=== PATIENT | male | born 1950 | race Hispanic/Latino ===

== ENCOUNTER 2020-01-12 21:10 | Observation (INO) | payer MEDICARE, OTHER ==
[~2020-01-12] VITALS: Ht 177.8 cm; Wt 94.4 kg
[2020-01-12 21:14] VITALS: BP 139/106
--- NOTE | 2020-01-12 21:14 | NUR ---
Arrival Patient arrived to ED room 2 via wheelchair with complaints of pressure to left side of chest and difficulty breathing. Patient denies heart problems or history. RT at bedside for EKG. Per son, roberto carlosight patient was hypertensive having difficulty with memory and c/o chest pain. Dr Aden notified of patient arrival. Patient placed on cardiac and bedside monitor.
--- NOTE | 2020-01-12 21:28 | PCM.EKG ---
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
[2020-01-12] MEDS ORDERED: ASPIRIN PO PRN (21:30)
[2020-01-12] MEDS ORDERED: DUO 0.5-3(2.5) MG/3 ML IH STA (21:30)
[2020-01-12] MEDS ORDERED: DECADRON IH STA (21:30)
[2020-01-12] MEDS ORDERED: DUO 0.5-3(2.5) MG/3 ML IH ONE (21:34)
[2020-01-12] MEDS ORDERED: DECADRON ONE (21:34)
[2020-01-12 21:38] LABS: BASOPHIL # 0.1 10^3/uL (0.0-0.1); EOSINOPHIL # 0.4 10^3/uL (0.0-0.2); EOSINOPHIL % 5.3 % (0.0-5.0); LYMPHOCYTES # 2.49 10^3/uL1 (1.0-4.8); LYMPHOCYTES % 31.3 % (24.0-44.0); MEAN CORP HGB 32.2 pg (26-34); MONOCYTES # 0.7 10^3/uL (0.3-0.8); MONOCYTES % 8.5 % (5.0-12.0); NEUTROPHIL # 4.2 10^3/uL (1.8-7.7); PLATELET COUNT 201 10^3/uL (150-400); RED CELL DISTRIBUTION WIDTH 11.7 % (11.5-14.5)
--- NOTE | 2020-01-12 21:43 | ER.PDOC ---
General Chief Complaint: Requesting Medical Care Stated Complaint: CHEST PAIN,HIGH BLOOD PRESSURE Time seen by MD: 21:39 Source: patient Exam Limitations: no limitations History of Present Illness Initial Comments Chest pain, elevated blood pressure and confusion, pain resolved prior to arriving the ED. Timing/Duration: 1 hour Severity/Quality: moderate, tightness Radiation: no radiation Nitro Today/Relief: No Nitro Taken Today Aspirin Today: 325 mg x 1, Provided By ED Associated Symptoms: shortness of breath, other (confusion) Allergies: Coded Allergies: No Known Allergies (Unverified , 09/23/13) Past Medical History Medical History: asthma, hypertension Surgical History: other Constitutional: no symptoms reported Respiratory: see HPI Cardiovascular: see HPI Gastrointestinal: no symptoms reported Genitourinary: no symptoms reported Psychiatric/Neurological: see HPI All Other Systems: Reviewed and Negative Physical Exam General Appearance: No Apparent Distress, WD/WN Neck: Non-Tender, Full Range of Motion, Supple, Normal Inspection Respiratory: chest non-tender, lungs clear, normal breath sounds, no respiratory distress, no accessory muscle use Cardiovascular: Normal Peripheral Pulses, Regular Rate, Rhythm, No Edema, No Gallop, No JVD, No Murmur Gastrointestinal: Normal Bowel Sounds, No Organomegaly, No Pulsatile Mass, Non Tender, Soft Extremities: Normal Range of Motion, Non-Tender, Normal Inspection, No Pedal Edema, No Calf Tenderness, Normal Capillary Refill 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 (01/12/20 21:25) Xr Chest 1v (01/12/20 21:25) Ekg-Routine (01/12/20 21:25) Aspirin (Aspirin) (01/12/20 21:30) Ct Head Wo Contrast (01/12/20 21:25) Ipratropium/Albuterol Sulfate (Duo 0.5-3 (01/12/20 21:30) Dexamethasone Sodium Phosphate (Decadron (01/12/20 21:30) Ipratropium/Albuterol Sulfate (Duo 0.5-3 (01/12/20 21:34) Dexamethasone Sodium Phosphate (Decadron (01/12/20 21:34) EKG/XRAY/CT/US EKG: NSR XRAY: chest (No active disease) Departure Time of Disposition: 22:38 Disposition: 09 ADMITTED INPATIENT Impression: Primary Impression: Chest pain in adult Condition: Stable Referrals: Lavelle MARQUEZ (PCP) PRIMARY CARE PROVIDER Comments Admitted to Dr. Silveira Duration or Time Spent with Pa: 60 mins COURTNEY JOHNSON MD Jan 12, 2020 21:43
[2020-01-12 22:00] LABS: ALANINE AMINOTRANSFERASE(ML) 62 U/L (12-78); ALKALINE PHOSPHATASE 93 U/L (50-136); ASPARTATE AMINO TRANSFERASE 37 U/L (0-35); CALCIUM 9.3 mg/dL (8.4-10.5); CARBON DIOXIDE 28.4 mmol/L (20.0-32); GLUCOSE 103 mg/dL (70-110)
--- NOTE | 2020-01-12 22:13 | NUR ---
Update Patient feels complete relief of symptoms after administration of albuterol
[2020-01-12 22:17] VITALS: BP 156/71
--- NOTE | 2020-01-12 22:19 | DIREP ---
PROCEDURE:CHEST 1 VIEW COMPARISON:[facility], CR, XRAY CHEST SINGLE VW, 07/22/2018, 01:12 PM. INDICATIONS:Chest pain FINDINGS: LUNGS/PLEURA:No significant pulmonary parenchymal abnormalities. No effusions. VASCULATURE:Normal. Unremarkable pulmonary vasculature. CARDIAC:Normal. No cardiac silhouette abnormality or cardiomegaly. MEDIASTINUM:Normal. No visible mass or adenopathy. BONES:Normal. No fracture or visible bony lesion. OTHER:Negative. CONCLUSION: 1. No active cardiopulmonary disease demonstrated. Dictated by: Main Victor M.D. on 01/12/2020 at 10:14 PM
--- NOTE | 2020-01-12 22:23 | DIREP ---
PROCEDURE:CT HEAD WITHOUT CONTRAST TECHNIQUE:Axial cuts were obtained through the head, without intravenous contrast material. The images were viewed at brain and bone settings. COMPARISON:None. INDICATIONS:Confusion FINDINGS: VENTRICLES:Normal. CEREBRUM: 1. There is no evidence of intracranial hemorrhage. A 3 mm calcification at the zaragoza/white matter junction in the posterior left frontal lobe is noted and is unchanged since 03/28/2014. CEREBELLUM:Normal. BRAINSTEM:Normal. SKULL:Normal. SINUSES:Normal. OTHER:Negative. CONCLUSION: 1. CT scan of the brain unremarkable and unchanged since 03/28/2014. Dictated by: Main Victor M.D. on 01/12/2020 at 10:18 PM
--- NOTE | 2020-01-12 22:34 | NUR ---
Dr Jordana fortune on phone with Dr Silveira for possible admit for observation
--- NOTE | 2020-01-12 22:58 | NUR ---
med reconcile unable to reconcile home medications prior to transfer to floor. Patient and family unaware of what medications patient takes at home
[2020-01-12 23:02] VITALS: BP 124/71
[2020-01-12] MEDS ORDERED: ASPIRIN ONE (23:02)
[2020-01-12 23:10] VITALS: BP 162/78
--- NOTE | 2020-01-12 23:15 | NUR ---
Admit Patient transferred to [facility]. Report given to Yash Paz LVN. No signs of distress noted at time of transfer. Patient alert and oriented with a GCS of 15
[2020-01-13] MEDS ORDERED: VENTOLIN IH PRN
[2020-01-13] MEDS ORDERED: HYDR25TA9 PO (01:32)
[2020-01-13] MEDS ORDERED: DULO60CA55 PO (01:32)
[2020-01-13] MEDS ORDERED: TACR1CAP2 PO (01:32)
[2020-01-13] MEDS ORDERED: AMLO10TA8 PO (01:32)
[2020-01-13] MEDS ORDERED: BUSP10TA PO (01:32)
[2020-01-13] MEDS ORDERED: LORA-448 PO (01:32)
[2020-01-13] MEDS ORDERED: CLOP75TA PO (01:32)
[2020-01-13] MEDS ORDERED: MYCO360T PO (01:38)
[2020-01-13 04:38] VITALS: BP 144/82
[2020-01-13 05:30] LABS: BILIRUBIN,URINE NEGATIVE (NEGATIVE); UROBILINOGEN,URINE NORMAL (NEGATIVE)
[2020-01-13 05:31] LABS: APPEARANCE,URINE CLOUDY (CLEAR); UA COLOR YELLOW (YELLOW)
[2020-01-13 09:53] VITALS: BP 143/84
[2020-01-13] MEDS ORDERED: HYDROCHLOROTHIAZIDE ONE (10:55)
[2020-01-13] MEDS ORDERED: HYDROCHLOROTHIAZIDE PO SCH (11:00)
[2020-01-13] MEDS ORDERED: NORVASC PO SCH (11:00)
[2020-01-13] MEDS ORDERED: CYMBALTA PO SCH (11:00)
[2020-01-13] MEDS ORDERED: PLAVIX PO SCH (11:00)
--- NOTE | 2020-01-13 11:18 | PCM.HP ---
HISTORY & PHYSICAL HISTORY & PHYSICAL DATE: January 12, 2020 Patient is being placed on MedSurg for observation ADMITTING DIAGNOSES: Chest pain, hypertension, confusion CHIEF COMPLAINT: Chest pain HISTORY OF PRESENT ILLNESS: 69-year-old gentleman who was at home with family when he all of a sudden started not to feel well. He is complaining of a headache and he became very confused. His was talking to him and noted that he was not making any sense. No syncope reported no fevers reported no vomiting reported. He started to have some chest discomfort at this time to and his family checked his blood pressure and his systolic blood pressure was very elevated at the time past 180. He was brought to the ER for further evaluation at that point. PAST MEDICAL HISTORY: Liver transplantation, hypertension, asthma ALLERGIES: No known drug allergies SOCIAL HISTORY: He does not smoke, no illicit drugs, no alcohol FAMILY HISTORY: Noncontributory for this admission PHYSICAL EXAMINATION: VITAL SIGNS: Temperature 98.8 pulse 82 respiratory rate 22 blood pressure 139/106 O2 sat 99% HEENT: Oropharynx clear, moist mucous membranes, some nasal congestion noted NECK: Supple, no JVD HEART: Regular rate and rhythm, no murmurs LUNGS: CTA bilaterally ABDOMEN: Soft abdomen with bowel sounds, no rebound, no guarding EXTREMITIES: No clubbing, no cyanosis, no edema, 2+ distal pulses bilaterally LABORATORY DATA: UA clear, CBC normal, sodium 142, potassium 3.2, chloride 104, BUN 14, creatinine 1.98, glucose 103, AST 37, ALT 62, alk phos 93, troponin I less than 0.02 Chest x-ray shows no acute infiltrates CT of the head showed no acute changes ASSESSMENT: accelerated hypertension with chest pain, suspect TIA, history of asthma and liver transplantation PLAN: He will be placed under telemetry and serial cardiac enzymes will be done and his blood pressure we will be followed overnight. DINA MOBLEY MD Jan 13, 2020 11:18
--- NOTE | 2020-01-13 11:32 | PRM.DC ---
DISCHARGE SUMMARY DISCHARGE SUMMARY DATE OF ADMISSION: January 12, 2020 DATE OF DISCHARGE: January 13, 2020 ADMITTING DIAGNOSES: Accelerated hypertension with chest pain, suspect TIA, asthma, status post liver transplantation DISCHARGE DIAGNOSES: Hypertension with TIA resolved, asthma HOSPITAL COURSE: 69-year-old gentleman who came in with TIA symptoms and markedly elevated blood pressures. By the time he came to the ER his blood pressure was coming down and is confusion and TIA symptoms resolved. Work-up in the ER was essentially negative. I watched him overnight on [employer] and he has had no issues overnight. At this point he feels good and wants to go home. DIET: Resume home diet ACTIVITY: As tolerated OTHER: I have asked him to record his blood pressures and heart rates twice a day to show to his primary care physician. MEDICATIONS: Resume home medications FOLLOW-UP: Follow-up with his PCP, Dr. Murrell, next week. DINA MOBLEY MD Jan 13, 2020 11:32
[2020-01-13 12:10] VITALS: BP 143/84
--- NOTE | 2020-01-13 12:10 | NUR ---
PT DC AT THIS TIME PT UNDERSTANDS ALL DC INSTRUCTIONS. PT LEAVES FLOOR BY PRIVATE VEHICLE ACCOMPANIED BY SPOUSE.
[2020-01-13] MEDS ORDERED: ATIVAN PO SCH (21:00)
[2020-01-13] MEDS ORDERED: BUSPAR PO SCH (21:00)
== END 2020-01-13 12:42 | disposition home or self-care (01) ==
LOC: ER 21:10 → MS 22:39
PROVIDERS: ADMIT Pediatrics; ATTEND Pediatrics
DX: R07.89 Other chest pain (principal); I10 Essential (primary) hypertension; R41.0 Disorientation, unspecified; J45.909 Unspecified asthma, uncomplicated; Z94.4 Liver transplant status; Z79.899 Other long term (current) drug therapy
CPT/HCPCS: 36415 ×2; 70450; 71045; 80053; 81002; 82550; 82553; 83880; 84484 ×2; 85025; 85610; 85730; 93005; 94640; 99285; G0378 ×14; J1100; J7620

== ENCOUNTER 2021-02-11 12:44 | Emergency (ER) | payer MEDICARE ==
[~2021-02-11] VITALS: Ht 177.8 cm; Wt 93.9 kg
[~2021-02-11 12:44] MED LIST: AMLO-170 PO; BUSP10TA PO; CLOP75TA PO; DULO60CA55 PO; HYDR25TA9 PO; LORA-448 PO; MYCO360T PO; TACR1CAP2 PO
[2021-02-11 12:55] VITALS: BP 160/84
[2021-02-11] MEDS ORDERED: DUO 0.5-3(2.5) MG/3 ML IH STA (12:59)
[2021-02-11] MEDS ORDERED: DECADRON IH STA (12:59)
--- NOTE | 2021-02-11 13:00 | NUR ---
ARRIVAL PATIENT ARRIVED TO ED6 VIA GURNEY BY [facility], C/O OF SHORTNESS OF BREATH THAT STARTED TODAY, PATIENT DOES HAVE A HISTORY OF ASHTMA, EMS INITIATED A 22G TO THE RIGHT WRIST AND GAVE SOLUMEDROL 125MG IV AND A XOPENEX BREATHING TREATMENT EYELET ROW MARKER, CUBE CUTTER APPLIED AND VITAL SIGNS OBTAINED, DOCTOR ALEX NOTIFIED OF PATIENT'S ARRIVAL.
--- NOTE | 2021-02-11 13:04 | ER.PDOC ---
General Chief Complaint: Dyspnea/Respdistress Stated Complaint: RESP DISTRESS Time seen by MD: 13:01 Source: patient Exam Limitations: no limitations History of Present Illness Initial Comments Shortness of breath and wheezing this morning. Patient has asthma but has not had exacerbation in a while. No chest pain. EMS was called to the scene and he received a breathing treatment and Solu-Medrol 125 mg IV. He is already feeling better. No nausea or vomiting. No fever or chills. Prior Episodes/Possible Cause: occasional episodes, chronic episodes Modifying Factors: improves with albuterol nebulizer Associated Symptoms: wheezing Allergies: Coded Allergies: No Known Allergies (Unverified , 09/23/13) Home Meds Reported Medications Finasteride (FINASTERIDE) 5 Mg Tablet, 1 TAB PO QD 02/11/21 Tamsulosin Hcl (FLOMAX) 0.4 Mg Cap.er.24h, 1 CAP PO DAILY, #90 CAP 3 Refills 02/11/21 Mycophenolate Sodium (MYFORTIC) 360 Mg Tablet.dr, 360 MG PO BID, #2 01/13/20 Hydrochlorothiazide (HYDROCHLOROTHIAZIDE) 25 Mg Tablet, 200 MG PO DAILY24 01/13/20 Lorazepam (ATIVAN) 1 Mg Tablet, 1 MG PO HS for ANXIETY 01/13/20 Duloxetine HCl (Duloxetine HCl) 60 Mg Capsule.dr, 60 MG PO DAILY24 01/13/20 Buspirone Hcl (BUSPIRONE HCL) 10 Mg Tablet, 10 MG PO BID 01/13/20 Clopidogrel Bisulfate (CLOPIDOGREL) 75 Mg Tablet, 75 MG PO DAILY24 01/13/20 Amlodipine Besylate (AMLODIPINE BESYLATE) 10 Mg Tablet, 10 MG PO DAILY24 01/13/20 Tacrolimus (TACROLIMUS) 1 Mg Capsule, 1 MG PO DAILY24 01/13/20 Past Medical History Medical History: asthma, CVA/TIA/stroke, hypertension Surgical History: other Family History Significant Family History: no pertinent family hx Social History Smoking: non-smoker Alcohol Use: none Drug Use: none Review of Systems Constitutional: no symptoms reported EENTM: no symptoms reported Respiratory: see HPI Cardiovascular: no symptoms reported Gastrointestinal: no symptoms reported Genitourinary: no symptoms reported All Other Systems: Reviewed and Negative Physical Exam General Appearance: WD/WN, Mild Distress Neck: Non-Tender, Full Range of Motion, Supple, Normal Inspection Respiratory: chest non-tender, respiratory distress, wheezing, expiration Cardiovascular: Normal Peripheral Pulses, Regular Rate, Rhythm, No Edema, No Gallop, No JVD, No Murmur, Tachycardia Gastrointestinal: Normal Bowel Sounds, No Organomegaly, No Pulsatile Mass, Non Tender, Soft Extremities: Normal Range of Motion, Non-Tender, Normal Inspection, No Pedal Edema, No Calf Tenderness, Normal Capillary Refill 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, No Motor/Sensory Deficits, Alert, Normal Mood/Affect, Oriented x 3 Skin: Normal Color, Warm/Dry Lymphatic: No Adenopathy Results/Orders Results/Orders Orders - COURTNEY JOHNSON MD Cbc With Auto Diff (02/11/21 12:59) Comprehensive Metabolic Panel (02/11/21 12:59) Creatine Kinase (02/11/21 12:59) Creatine Kinase Mb (02/11/21 12:59) Probnp B-Type Civil Engineering Assistant (02/11/21 12:59) Troponin I (02/11/21 12:59) Xr Chest 1v (02/11/21 12:59) Ekg-Routine (02/11/21 12:59) Ipratropium/Albuterol Sulfate (Duo 0.5-3 (02/11/21 12:59) Dexamethasone Sodium Phosphate (Decadron (02/11/21 12:59) Ipratropium/Albuterol Sulfate (Duo 0.5-3 (02/11/21 13:16) Dexamethasone Sodium Phosphate (Decadron (02/11/21 13:16) Vital Signs Date Time Temp Pulse Resp B/P (MAP) Pulse Ox O2 Delivery O2 Flow Rate FiO2 02/11/21 13:38 98.8 94 24 137/72 (93) 96 Room Air 02/11/21 13:20 93 18 99 02/11/21 13:20 92 18 98 02/11/21 12:55 98.8 110 24 96 02/11/21 12:55 98.8 110 24 02/11/21 12:55 98.8 110 24 160/84 (109) 96 Room Air Laboratory Tests Test 02/11/21 13:09 White Blood Count 7.1 10^3/uL (4.5-11.0) Red Blood Count 4.22 10^6/uL (4.50-5.90) L Hemoglobin 13.6 g/dL (13.9-16.3) L Hematocrit 37.8 % (37.0-53.0) Mean Corpuscular Volume 89.6 fL (78-100) Mean Corpuscular Hemoglobin 32.2 pg (26-34) Mean Corpuscular Hemoglobin Concent 36.0 g/dL (33-36.5) Red Cell Distribution Width 12.2 % (11.5-14.5) Platelet Count 161 10^3/uL (150-400) Mean Platelet Volume 11.0 fL (7.8-11.0) Neutrophils (%) (Auto) 59.3 % (41.0-85.0) Lymphocytes (%) (Auto) 28.1 % (24.0-44.0) Monocytes (%) (Auto) 8.3 % (5.0-12.0) Neutrophils # (Auto) 4.2 10^3/uL (1.8-7.7) Lymphocytes # (Auto) 2.00 10^3/uL1 (1.0-4.8) Monocytes # (Auto) 0.6 10^3/uL (0.3-0.8) Absolute Immature Granulocyte (auto 0.07 10^3 u/L (0-2) Absolute Eosinophils (auto) 0.2 10^3/uL (0.0-0.2) Immature Granulocytes % 1.00 % (0.00-0.50) H Eosinophils % 2.9 % (0.0-5.0) Basophils % 0.4 % (0.0-0.2) H Basophils # 0.0 10^3/uL (0.0-0.1) Sodium Level 144 mmol/L (132-145) Potassium Level 3.5 mmol/L (3.6-5.2) L Chloride Level 104.0 mmol/L (96-109) Carbon Dioxide Level 30.6 mmol/L (20.0-32) Anion Gap 12.9 Blood Urea Nitrogen 11 mg/dL (7-18) Creatinine 0.98 mg/dL (0.59-1.40) Estimated GFR () 91.8 (>/=60) Est GFR (CKD-EPI)(Non-Afr Jamaican) 75.8 (>/=60) BUN/Creatinine Ratio 11.0 Glucose Level 147 mg/dL (70-110) H Calcium Level 9.4 mg/dL (8.4-10.5) Total Bilirubin 0.6 mg/dL (0.2-1.0) Aspartate Amino Transferase (AST) 41 U/L (0-35) H Alanine Aminotransferase (ALT) 66 U/L (12-78) Alkaline Phosphatase 80 U/L (50-136) Total Creatine Kinase 133 U/L (39-308) Creatine Kinase MB 2.1 ng/mL (0.5-3.6) Troponin I < 0.02 ng/mL (0.00-0.05) Pro-B-Type Natriuretic Peptide 91 pg/mL (0-125) Total Protein 7.6 g/dL (6.4-8.2) Albumin 4.1 g/dL (3.4-5.0) Globulin 3.5 Albumin/Globulin Ratio 1.171 Progress Progress EKG and labs including cardiac enzymes are unremarkable. Patient is feeling better after he had 2 breathing treatments. He feels fine to go home. Reexamination of the chest shows that wheezes have completely resolved. His breathing is better. EKG/XRAY/CT/US EKG: NSR, no ST T wave changes EKG Comments: HR 91, normal P axis ER DEPART Departure Time of Disposition: 14:03 Disposition: 01 HOME, SELF-CARE Impression: Primary Impression: Shortness of breath Additional Impression: Asthma exacerbation attacks Condition: Improved Referrals: Lavelle MARQUEZ (PCP) PRIMARY CARE PROVIDER Additional Instructions: Albuterol HHN Prednisone Follow-up with your PCP in 1 to 2 days Return to ED if worsening symptoms or concerns Duration or Time Spent with Pa: 60 min Problem Qualifiers Additional Impression: Asthma exacerbation attacks Asthma severity: mild Asthma persistence: intermittent Qualified Codes: J45.21 - Mild intermittent asthma with (acute) exacerbation COURTNEY JOHNSON MD Feb 11, 2021 13:04
[2021-02-11] MEDS ORDERED: TAMS-14 PO (13:07)
[2021-02-11] MEDS ORDERED: FINA5TAB4 PO (13:07)
[2021-02-11 13:13] LABS: BASOPHIL % 0.4 % (0.0-0.2); EOSINOPHIL # 0.2 10^3/uL (0.0-0.2); EOSINOPHIL % 2.9 % (0.0-5.0); LYMPHOCYTES % 28.1 % (24.0-44.0); MEAN CORP HGB 32.2 pg (26-34); MONOCYTES # 0.6 10^3/uL (0.3-0.8); MONOCYTES % 8.3 % (5.0-12.0); NEUTROPHIL # 4.2 10^3/uL (1.8-7.7); NEUTROPHILS % 59.3 % (41.0-85.0); PLATELET COUNT 161 10^3/uL (150-400); RED CELL DISTRIBUTION WIDTH 12.2 % (11.5-14.5)
[2021-02-11] MEDS ORDERED: DECADRON ONE (13:16)
[2021-02-11] MEDS ORDERED: DUO 0.5-3(2.5) MG/3 ML IH ONE (13:16)
--- NOTE | 2021-02-11 13:24 | PCM.EKG ---
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
--- NOTE | 2021-02-11 13:29 | DIREP ---
PROCEDURE:CHEST 1 VIEW COMPARISON:[facility], CR, XRAY CHEST SINGLE VW, 01/12/2020, 09:33 PM. INDICATIONS:Shortness of breath FINDINGS: LUNGS/PLEURA:AP lordotic view shows clear lungs. VASCULATURE:Normal. Unremarkable pulmonary vasculature. CARDIAC:Normal. No cardiac silhouette abnormality or cardiomegaly. MEDIASTINUM:Normal. No visible mass or adenopathy. BONES:Normal. No fracture or visible bony lesion. OTHER:Negative. CONCLUSION:Clear EP lordotic chest. Dictated by: Eddi Dunham MD on 02/11/2021 at 01:27 PM
[2021-02-11 13:38] VITALS: BP 137/72
[2021-02-11 13:40] LABS: ALANINE AMINOTRANSFERASE(ML) 66 U/L (12-78); ALKALINE PHOSPHATASE 80 U/L (50-136); ASPARTATE AMINO TRANSFERASE 41 U/L (0-35); CALCIUM 9.4 mg/dL (8.4-10.5); CARBON DIOXIDE 30.6 mmol/L (20.0-32); GLUCOSE 147 mg/dL (70-110)
[2021-02-11 14:06] VITALS: BP 135/64
== END 2021-02-11 14:06 | disposition home or self-care (01) ==
LOC: EDBD 12:44 → ER 12:44
DX: J45.21 Mild intermittent asthma with (acute) exacerbation (principal); I10 Essential (primary) hypertension; Z79.899 Other long term (current) drug therapy; Z86.73 Personal history of transient ischemic attack (TIA), and cerebral infarction without residual deficits
CPT/HCPCS: 36415; 71045; 80053; 82550; 82553; 83880; 84484; 85025; 93005; 99285; J1100; J7620